=== PATIENT | female | born 1980 ===

== ENCOUNTER 2025-03-28 06:23 | Day surgery (SDC) | payer BC, SELFPAY | END 2025-03-28 10:53 | disposition home or self-care (01) | LOC: GI 06:23 | PROVIDERS: ATTENDING PHYSICIAN Surgery | DX: Z12.11 Encounter for screening for malignant neoplasm of colon (principal); D12.3 Benign neoplasm of transverse colon; K62.1 Rectal polyp; Z83.719 Family history of colon polyps, unspecified | CPT/HCPCS: 45380; 88305 ==